=== PATIENT | female | born 1995 | race Caucasian/White ===

== ENCOUNTER 2018-01-02 05:29 | Emergency (ER) | payer SELFPAY ==
[~2018-01-02] VITALS: Ht 162.6 cm; Wt 82.1 kg
[2018-01-02 05:45] VITALS: Ht 162.6 cm; Wt 82.1 kg
[2018-01-02 06:19] VITALS: BP 112/64
== END 2018-01-02 06:19 | disposition home or self-care (01) ==
LOC: ED 05:29
DX: O26.892 Other specified pregnancy related conditions, second trimester (principal); H66.91 Otitis media, unspecified, right ear; Z3A.20 20 weeks gestation of pregnancy